=== PATIENT | male | born 1965 | race Caucasian/White ===

== ENCOUNTER → 2017-10-14 | Day surgery (SDC) | payer BC ==
[~2017-10-14] MED LIST: FENTANYL CITRATE/PF 100MCG/2 ML INJ ONE; LIDOCAINE HCL 2% LOCAL INJ 5 ML SDV VIAL INJ ONE; METOCLOPRAMIDE HCL 10 MG/2ML VIAL ONE; MIDAZOLAM HCL 2 MG/2 ML VIAL ONE; PANTOPRAZOLE 40 MG 10ML VIAL ONE; PROPOFOL IV EMULSION 10 MG/ML 20 ML VIAL ONE
[2017-10-14 16:38] LABS: WBC,FECAL (FECAL LACTOFERRIN) NEGATIVE (NEGATIVE)
--- NOTE | 2017-10-14 16:41 | Operative Report ---
DATE OF PROCEDURE: October 14, 2017 PROCEDURE PERFORMED: 1. Esophagogastroduodenoscopy with esophageal dilatation and biopsies. 2. Colonoscopy with polypectomy and biopsies. INDICATIONS FOR ESOPHAGOGASTRODUODENOSCOPY: Dysphagia/odynophagia, heartburn. INDICATIONS FOR COLONOSCOPY: Rectal bleeding, change in bowel habits, intermittent diarrhea. MEDICATION: Patient was done under MAC. Please see anesthesiologist's note. PROCEDURE: With patient in the left lateral decubitus position, the flexible fiberoptic Olympus gastroscope was introduced into the esophagus under direct visualization without any difficulty. There were some concentric rings noted in the esophagus compatible with eosinophilic esophagitis, biopsies were obtained, and there was a mild stricture noted at the GE junction and that was dilated to a size 52-[place] Daniels. The scope was then advanced with ease into the stomach. Mucosa overlying the antrum and the body revealed some diffuse erythema and low-grade to moderate edema, and biopsies were obtained and sent to stain for H. pylori. Pylorus appeared to be of normal contour and shape, was intubated with ease, and the scope was advanced all the way to the 2nd portion of the duodenum. The scope was then withdrawn slowly, and mucosa overlying the proximal 2nd portion grossly appeared to be within normal limits. Biopsies were obtained to rule out sprue considering patient's history of diarrhea. The mucosa overlying the duodenal bulb appeared to be within normal limits. The scope was then withdrawn back into the stomach and retroflexed, and the mucosa overlying the fundus and the cardia appeared to be within normal limits. The scope was then straightened out. It was subsequently withdrawn. Patient tolerated the procedure well. IMPRESSION: 1. Rule out eosinophilic esophagitis. 2. Esophageal stricture at gastroesophageal junction dilated to size 52-[place] Daniels. 3. Gastritis biopsied. Biopsies sent to stain for H. pylori. 4. Rule out sprue. PLAN: Follow up histology. Initiate Protonix 40 mg 1 p.o. q.a.m. a.c. Patient was then turned around and after adequate lubrication of the anal canal, a flexible fiberoptic Olympus colonoscope was inserted into the rectum with ease and advanced all the way to the cecum. Mucosa overlying the cecum grossly appeared to be within normal limits. The ileocecal valve was intubated, and the scope was advanced into the terminal ileum. Biopsies were obtained. The scope was then withdrawn back into the colon. There were some retained stools in the colon, and the prep overall was suboptimal. Whatever was visualized of the mucosa overlying the ascending and the transverse appeared to be within normal limits. There were some mild patchy inflammatory changes noted in the left colon. Multiple random biopsies were obtained. One approximately 1 cm polyp was snared from the sigmoid colon, and 3 minute polyps were hot biopsied from the sigmoid colon. There were also mild diffuse inflammatory changes noted in the rectum, and biopsies were obtained. The scope was then retroflexed into the distal rectum and small internal hemorrhoids were noted, none of which was actively bleeding. The scope was then straightened out. It was subsequently withdrawn. Patient tolerated procedure well. IMPRESSION: 1. Suboptimal prep. 2. Mild patchy colitis left colon. 3. Sigmoid colon polyps times 4 up to 1 cm in size, 1 snared and 3 hot biopsied. 4. Proctitis biopsied. 5. Internal hemorrhoids, none actively bleeding. PLAN: Follow up histology. Follow up stool studies. Initiate Bentyl 10 mg 1 p.o. t.i.d. and initiate VSL#3 DS 1 p.o. daily. Patient will need a colonoscopy in 3 years. Job#: [id number] EV
[2017-10-15 11:53] LABS: C DIFFICILE TOXIN A&B AMP PROB NEGATIVE (NEGATIVE)
== END | disposition home or self-care (01) ==
LOC: OR 12:52
PROVIDERS: ATTEND Internal Medicine Gastroenterology
DX: K22.2 Esophageal obstruction (principal); D12.5 Benign neoplasm of sigmoid colon; K29.70 Gastritis, unspecified, without bleeding; K52.9 Noninfective gastroenteritis and colitis, unspecified; K21.0 Gastro-esophageal reflux disease with esophagitis; K62.89 Other specified diseases of anus and rectum; K59.00 Constipation, unspecified; K64.8 Other hemorrhoids; F41.9 Anxiety disorder, unspecified; Z01.810 Encounter for preprocedural cardiovascular examination; Z68.37 Body mass index [BMI] 37.0-37.9, adult
CPT/HCPCS: 43239; 43450; 45380; 45384; 45385; 83630; 83993; 87045; 87177; 87328; 87493; 93005; J2001; J2250; J2765

== ENCOUNTER 2018-02-08 15:39 | Emergency (ER) | payer BC ==
[~2018-02-08] VITALS: Ht 180.3 cm; Wt 120.2 kg
[2018-02-08] MEDS ORDERED: METRONIDAZOLE 500MG/NS 100ML 100 ML IV STA (16:05)
[2018-02-08] MEDS ORDERED: SODIUM CHLORIDE 0.9% 1000ML 2,000 ML IV STA (16:05)
[2018-02-08] MEDS ORDERED: ONDANSETRON HCL INJ 2 MG/ML VIAL IV STA (16:05)
[2018-02-08] MEDS ORDERED: PIPER-TAZ 3.375 GM 50 ML IV STA (16:05)
[2018-02-08] MEDS ORDERED: MORPHINE SULFATE 5 MG/ML VIAL IV ONE (16:15)
[2018-02-08] MEDS ORDERED: ACETAMINOPHEN 325 MG TAB PO ONE (16:15)
[2018-02-08] MEDS ORDERED: MORPHINE SULFATE 2 MG/ML SYR ONE (16:24)
[2018-02-08 16:45] LABS: BASOPHILS % 0.3 % (0.0-1.0); EOSINOPHILS % 0.3 % (0.0-6.0); HEMATOCRIT 49.4 % (38.2-49.6); HEMOGLOBIN 17.1 g/dL (14.0-18.0); LYMPHOCYTES # (AUTO) 0.8 (1.0-3.2); LYMPHOCYTES % 7.9 % (18.0-39.1); MEAN CORPUSCULAR HEMOGLOBIN 30.9 pg (28-32); MEAN CORPUSCULAR HGB CONC 34.6 g/dL (31-35); MEAN CORPUSCULAR VOLUME 89.2 fL (81-99); MONOCYTES # (AUTO) 0.9 (0.2-0.8); MONOCYTES % 9.1 % (4.4-11.3); NEUTROPHILS # (AUTO) 7.8 (2.1-6.9); PLATELET COUNT 190 x10e3/uL (140-360); RED BLOOD COUNT 5.54 x10e6/uL (4.3-5.7); RED CELL DISTRIBUTION WIDTH 12.7 % (11.7-14.4)
[2018-02-08 16:57] LABS: BILIRUBIN,URINE NEGATIVE (NEGATIVE); CLARITY,URINE HAZY (CLEAR); COLOR,URINE YELLOW (YELLOW); KETONES,URINE NEGATIVE (NEGATIVE); LEUKOCYTE ESTERASE ,URINE NEGATIVE (NEGATIVE); NITRITE,URINE NEGATIVE (NEGATIVE); PROTEIN,URINE DIPSTICK NEGATIVE (NEGATIVE); URINE UROBILINOGEN 0.2 mg/dL (0.2 - 1); WBC,URINE (MAN) 0-5 /HPF (0-5)
[2018-02-08 16:58] LABS: BACTERIA,URINE RARE /HPF; EPITHELIAL CELLS,URINE RARE /LPF; MUCUS,URINE MODERATE (RARE)
[2018-02-08 17:12] LABS: ALANINE AMINOTRANSFERASE 76 IU/L (0-55); ALBUMIN 4.4 g/dL (3.5-5.0); ALBUMIN/GLOBULIN RATIO 1.2 (0.8-2.0); ALKALINE PHOSPHATASE 60 IU/L (40-150); ANION GAP 9.8 mmol/L (8-16); BLOOD UREA NITROGEN 11 mg/dL (7-26); BUN/CREATININE RATIO 8 (6-25); CALCIUM 10.1 mg/dL (8.4-10.2); CARBON DIOXIDE 27 mmol/L (22-29); CHLORIDE 105 mmol/L (98-107); CREATINE KINASE 74 IU/L (30-200); CREATININE, SERUM 1.36 mg/dL (0.72-1.25); EST GLOMERULAR FILTRATION RATE 55 ML/MIN (60-); GLUCOSE 114 mg/dL (74-118); LIPASE 40 U/L (8-78); POTASSIUM 3.8 mmol/L (3.5-5.1); SODIUM 138 mmol/L (136-145)
[2018-02-08] MEDS ORDERED: PANTOPRAZOLE SO40 MG PO (17:48)
--- NOTE | 2018-02-08 17:52 | Diagnostic Imaging Report ---
EXAM: CT Abdomen and Pelvis WITH contrast INDICATION: Abdominal Pain, history of Ulcerative Colitis COMPARISON: None. TECHNIQUE: Abdomen and pelvis were scanned utilizing a multidetector helical scanner from the lung base to the pubic symphysis after administration of IV contrast. Coronal and sagittal reformations were obtained. Routine protocol was performed. Scan was performed when during portal venous phase. IV CONTRAST: 100 mL of Isovue 370 ORAL CONTRAST: Water COMPLICATIONS: None RADIATION DOSE: Total DLP: 927 mGy*cm Estimated effective dose: (DLP x 0.015 x size factor) mSv CTDIvol has been reviewed. It is below the limits set by the Radiation Protocol Committee (RPC). FINDINGS: LINES and TUBES: None. LOWER THORAX: Unremarkable HEPATOBILIARY: Diffuse mild fatty liver. No evidence of focal lesion. No biliary ductal dilation. GALLBLADDER: Status post cholecystectomy. SPLEEN: No splenomegaly. PANCREAS: No focal masses or ductal dilatation. ADRENALS: No adrenal nodules KIDNEYS/URETERS: Kidneys enhance symmetrically. No evidence of hydronephrosis, solid mass, or stone. GI TRACT: The rectum is decompressed with apparent mild wall thickening and fatty infiltration in the wall. No evidence of other bowel wall thickening or distension. Appendix is normal. PELVIC ORGANS/BLADDER: Unremarkable. LYMPH NODES: No lymphadenopathy. VESSELS: Unremarkable. PERITONEUM / RETROPERITONEUM: No free air or fluid. BONES AND SOFT TISSUES: Unremarkable. CONCLUSION: Mildly thick walled rectum, which may be secondary to underdistention. Fatty infiltration of the wall, suggestive of prior inflammatory chevage. No evidence of acute colitis. Mild hepatic steatosis. Signed by: Dr. Kerry Rios MD on 02/08/2018 5:49 PM
[2018-02-08] MEDS ORDERED: SODIUM CHLORIDE 0.9% 50ML 50 ML ONE (17:56)
[2018-02-08] MEDS ORDERED: IOPAMIDOL 370 MG/ML 200 ML INFUS..BTL INJ ONE (17:56)
== END 2018-02-08 18:57 | disposition home or self-care (01) ==
LOC: ER 15:39
DX: R10.32 Left lower quadrant pain (principal); R10.11 Right upper quadrant pain; R11.0 Nausea; R19.7 Diarrhea, unspecified
CPT/HCPCS: 36415; 74177; 80053; 81001; 82550; 82553; 83690; 84484; 85025; 99284; J2270 ×2; J2405; J2543; J7030; Q9967

== ENCOUNTER 2018-03-06 16:16 | Emergency (ER) | payer BC ==
[~2018-03-06] VITALS: Ht 180.3 cm; Wt 120.2 kg
[~2018-03-06 16:16] MED LIST changes: -FENTANYL CITRATE/PF 100MCG/2 ML INJ ONE; -LIDOCAINE HCL 2% LOCAL INJ 5 ML SDV VIAL INJ ONE; -METOCLOPRAMIDE HCL 10 MG/2ML VIAL ONE; -MIDAZOLAM HCL 2 MG/2 ML VIAL ONE; -PANTOPRAZOLE 40 MG 10ML VIAL ONE; +PANTOPRAZOLE SO40 MG PO; -PROPOFOL IV EMULSION 10 MG/ML 20 ML VIAL ONE
--- OUTSIDE RECORDS SUMMARY | 2018-03-06 16:19 | XMS REPORT ---
Author Author [facility] Address Unknown Phone Unavailable Care Team Providers Care Refrigerator Tester Name Role Phone Chong HE Unavailable Unavailable Problems This patient has no known problems. Allergies, Adverse Reactions, Alerts This patient has no known allergies or adverse reactions. Medications This patient has no known medications. Results Test Description Test Time Test Comments Text Results Atomic Results Result Comments CT ABDOMEN/PELVIS W 2018-02-08 17:41:00 [place] [address] Patient Name: HARLEEN MAHAJAN MR #: [id number] : 1965 Age/Sex: 52/M Req #: [id number] [facility] Physician: Ordered by: BERNIE HE MD Report #: [id number] Location: ER Room/Bed: Procedure: [id number] CT/CT ABDOMEN/PELVIS W Exam Date: 02/08/18 Exam Time: 1642 REPORT STATUS: Signed EXAM: CT Abdomen and Pelvis WITH contrast INDICATION: Abdominal Pain, history of Ulcerative Colitis COMPARISON: None. TECHNIQUE: Abdomen and pelvis were scanned utilizing a multidetector helical scanner from the lung base to the pubic symphysis after administration of IV contrast. Coronal and sagittal reformations were obtained. Routine protocol was performed. Scan was performed when during portal venous phase. IV CONTRAST: 100 mL of Isovue 370 ORAL CONTRAST: Water COMPLICATIONS: None RADIATION DOSE: Total DLP: 927 mGy*cm Estimated effective dose: (DLP x 0.015 x size factor) mSv CTDIvol has been reviewed. It is below the limits set by the Radiation Protocol Committee (RPC). FINDINGS: LINES and TUBES: None. LOWER THORAX: Unremarkable HEPATOBILIARY: Diffuse mild fatty liver. No evidence of focal lesion. No biliary ductal dilation. GALLBLADDER: Status post cholecystectomy. SPLEEN: No splenomegaly. PANCREAS: No focal masses or ductal dilatation. ADRENALS: No adrenal nodules KIDNEYS/URETERS: Kidneys enhance symmetrically. No evidence of hydronephrosis, solid mass, or stone. GI TRACT: The rectum is decompressed with apparent mild wall thickening and fatty infiltration in the wall. No evidence of other bowel wall thickening or distension. Appendix is normal. PELVIC ORGANS/BLADDER: Unremarkable. LYMPH NODES: No lymphadenopathy. VESSELS: Unremarkable. PERITONEUM / RETROPERITONEUM: No free air or fluid. BONES AND SOFT TISSUES: Unremarkable. CONCLUSION: Mildly thick walled rectum, which may be secondary to underdistention. Fatty infiltration of the wall, suggestive of prior inflammatory chevage. No evidence of acute colitis. Mild hepatic steatosis. Signed by: Dr. Nathan Roach MD on 02/08/2018 5:49 PM Dictated By: NATHAN ROACH MD 48 Transcribed By: TIRSO on 02/08/181748 COPY TO: BERNIE HE MD
[2018-03-06 17:31] LABS: BASOPHILS % 0.7 % (0.0-1.0); EOSINOPHILS # (AUTO) 0.1 (0.0-0.4); EOSINOPHILS % 1.8 % (0.0-6.0); HEMATOCRIT 42.9 % (38.2-49.6); HEMOGLOBIN 14.5 g/dL (14.0-18.0); LYMPHOCYTES # (AUTO) 1.4 (1.0-3.2); MEAN CORPUSCULAR HEMOGLOBIN 30.6 pg (28-32); MEAN CORPUSCULAR HGB CONC 33.8 g/dL (31-35); MEAN CORPUSCULAR VOLUME 90.5 fL (81-99); MONOCYTES # (AUTO) 0.7 (0.2-0.8); MONOCYTES % 12.1 % (4.4-11.3); NEUTROPHILS # (AUTO) 3.5 (2.1-6.9); NEUTROPHILS % 61.2 % (38.7-80.0); PLATELET COUNT 159 x10e3/uL (140-360); RED BLOOD COUNT 4.74 x10e6/uL (4.3-5.7); RED CELL DISTRIBUTION WIDTH 12.7 % (11.7-14.4)
[2018-03-06 17:40] LABS: CLARITY,URINE SL CLOUDY (CLEAR); COLOR,URINE YELLOW (YELLOW); KETONES,URINE NEGATIVE (NEGATIVE); LEUKOCYTE ESTERASE ,URINE TRACE (NEGATIVE); NITRITE,URINE NEGATIVE (NEGATIVE); PROTEIN,URINE DIPSTICK NEGATIVE (NEGATIVE)
[2018-03-06 17:41] LABS: BILIRUBIN,URINE NEGATIVE (NEGATIVE); URINE UROBILINOGEN 0.2 mg/dL (0.2 - 1)
[2018-03-06 17:52] LABS: ALANINE AMINOTRANSFERASE 69 IU/L (0-55); ALBUMIN 4.1 g/dL (3.5-5.0); ALBUMIN/GLOBULIN RATIO 1.3 (0.8-2.0); ALKALINE PHOSPHATASE 67 IU/L (40-150); BLOOD UREA NITROGEN 9 mg/dL (7-26); BUN/CREATININE RATIO 9 (6-25); CALCIUM 9.6 mg/dL (8.4-10.2); CARBON DIOXIDE 26 mmol/L (22-29); CHLORIDE 106 mmol/L (98-107); CREATININE, SERUM 1.03 mg/dL (0.72-1.25); EST GLOMERULAR FILTRATION RATE > 60 ML/MIN (60-); GLUCOSE 123 mg/dL (74-118); MAGNESIUM 1.9 MG/DL (1.3-2.1); SODIUM 140 mmol/L (136-145)
[2018-03-06 18:12] LABS: THYROID STIMULATING HORMONE 1.658 uIU/mL (0.350-4.940)
--- NOTE | 2018-03-06 18:37 | Diagnostic Imaging Report ---
EXAM: HEAD CT WITHOUT CONTRAST History: 52-year-old male with perioral numbness Comparison studies: None Technique: Axial images were obtained from the skull base to the vertex. Coronal and sagittal reconstructions obtained from the axial data. Dose modulation, iterative reconstruction, and/or weight based adjustment of the mA/kV was utilized to reduce the radiation dose to as low as reasonably achievable. Findings: Scalp/skull: No abnormalities. No fractures, blastic or lytic lesions. Extra-axial spaces: No masses. No fluid collections. Brain sulci: Appropriate for age. Ventricles: Normal in size and configuration. No hydrocephalus. Parenchyma: No abnormal densities. No masses, hemorrhage, acute or chronic cortical vascular insults. Sellar/suprasellar region: No abnormalities Craniocervical junction: Patent foramen magnum. No Chiari one malformation. IMPRESSION: No abnormalities. Preliminary report dictated by Dr. Avelina Bone, Neuroradiology Fellow on 03/06/2018 at 1837 hours. A final report by the attending radiologist will follow. The images and preliminary report were reviewed and signed by Dr. Diana Guido, neuroradiology faculty, on 03/06/2018 at 1944 hours. Signed by: Dr. Diana Giudo M.D. on 03/06/2018 7:44 PM
[2018-03-06 19:54] VITALS: BP 126/76
== END 2018-03-06 20:07 | disposition home or self-care (01) ==
LOC: ER 16:16
DX: R20.2 Paresthesia of skin (principal); I48.91 Unspecified atrial fibrillation; E78.5 Hyperlipidemia, unspecified; K51.90 Ulcerative colitis, unspecified, without complications; G89.29 Other chronic pain
CPT/HCPCS: 36415; 70450; 80053; 81001; 82948; 83735; 84443; 85025; 93005; 99284

== ENCOUNTER 2020-02-27 15:59 | Emergency (ER) | payer BC ==
[~2020-02-27] VITALS: Ht 180.3 cm; Wt 120.2 kg
[2020-02-27] MEDS ORDERED: ONDANSETRON HCL INJ 2MG/ML 2ML 2 MG/ML VIAL IV STA (16:12)
[2020-02-27] MEDS ORDERED: SODIUM CHLORIDE 0.9% 1000ML 1,000 ML IV STA (16:12)
[2020-02-27] MEDS ORDERED: MORPHINE SULFATE INJ 4 MG/ML INJ 1ML IV STA (16:23)
[2020-02-27 16:46] LABS: BASOPHILS # (AUTO) 0.1 (0.0-0.1); BASOPHILS % 0.4 % (0.0-1.0); EOSINOPHILS # (AUTO) 0.1 (0.0-0.4); EOSINOPHILS % 1.3 % (0.0-6.0); HEMATOCRIT 42.4 % (38.2-49.6); HEMOGLOBIN 14.5 g/dL (14.0-18.0); LYMPHOCYTES # (AUTO) 1.7 (1.0-3.2); LYMPHOCYTES % 15.6 % (18.0-39.1); MEAN CORPUSCULAR HEMOGLOBIN 31.4 pg (28-32); MEAN CORPUSCULAR HGB CONC 34.2 g/dL (31-35); MEAN CORPUSCULAR VOLUME 91.8 fL (81-99); MONOCYTES % 8.7 % (4.4-11.3); NEUTROPHILS # (AUTO) 8.2 (2.1-6.9); NEUTROPHILS % 73.6 % (38.7-80.0); PLATELET COUNT 154 x10e3/uL (140-360); RED BLOOD COUNT 4.62 x10e6/uL (4.3-5.7); RED CELL DISTRIBUTION WIDTH 12.4 % (11.7-14.4)
[2020-02-27 16:51] LABS: INR 1.03; PARTIAL THROMBOPLASTIN TIME 30.2 seconds (23.8-35.5)
[2020-02-27 17:02] LABS: ALANINE AMINOTRANSFERASE 101 IU/L (0-55); ALBUMIN 3.8 g/dL (3.5-5.0); ALBUMIN/GLOBULIN RATIO 1.1 (0.8-2.0); ALKALINE PHOSPHATASE 85 IU/L (40-150); AMYLASE 52 U/L (25-125); ANION GAP 13.2 mmol/L (8-16); BLOOD UREA NITROGEN 8 mg/dL (7-26); BUN/CREATININE RATIO 7 (6-25); CALCIUM 9.1 mg/dL (8.4-10.2); CARBON DIOXIDE 25 mmol/L (22-29); CHLORIDE 103 mmol/L (98-107); CREATINE KINASE 103 IU/L (30-200); EST GLOMERULAR FILTRATION RATE > 60 ML/MIN (60-); GLUCOSE 219 mg/dL (74-118); LIPASE 27 U/L (8-78); MAGNESIUM 1.6 MG/DL (1.3-2.1); POTASSIUM 3.2 mmol/L (3.5-5.1); SODIUM 138 mmol/L (136-145)
[2020-02-27] MEDS ORDERED: IOPAMIDOL 370 MG/ML 200 ML INFUS..BTL INJ ONE (17:30)
[2020-02-27] MEDS ORDERED: SODIUM CHLORIDE 0.9% 50ML 50 ML ONE (17:30)
--- NOTE | 2020-02-27 18:03 | Diagnostic Imaging Report ---
EXAM: CT Abdomen and Pelvis WITH contrast INDICATION: Right upper quadrant and right lower quadrant pain in patient with history of colitis. COMPARISON: CT of the abdomen/pelvis on 03/06/2018 TECHNIQUE: Abdomen and pelvis were scanned utilizing a multidetector helical scanner from the lung base to the pubic symphysis after administration of IV contrast. Coronal and sagittal reformations were obtained. Routine protocol was performed. Scan was performed when during portal venous phase. IV CONTRAST: 100 mL of Isovue 370 ORAL CONTRAST: None COMPLICATIONS: None RADIATION DOSE: Total DLP: 948 mGy*cm Estimated effective dose: (DLP x 0.015 x size factor) mSv CTDIvol has been reviewed. It is below the limits set by the Radiation Protocol Committee (RPC). Dose modulation, iterative reconstruction, and/or weight based adjustment of the mA/kV was utilized to reduce the radiation dose to as low as reasonably achievable. FINDINGS: LINES and TUBES: None. LOWER THORAX: Unremarkable HEPATOBILIARY: The liver is diffuse hypodense compared to the spleen, consistent with diffuse hepatic diffuse hepatic steatosis. No focal hepatic lesions. No biliary ductal dilation. GALLBLADDER: There are cholecystectomy clips. SPLEEN: No splenomegaly. PANCREAS: No focal masses or ductal dilatation. ADRENALS: No adrenal nodules KIDNEYS/URETERS: Kidneys enhance symmetrically. No hydronephrosis. No cystic or solid mass lesions. No stones. GI TRACT: No abnormal distention, wall thickening, or evidence of bowel obstruction. Appendix is normal. PELVIC ORGANS/BLADDER: Unremarkable. LYMPH NODES: No lymphadenopathy. VESSELS: Scattered mild arterial vascular calcifications. PERITONEUM / RETROPERITONEUM: No free air or fluid. BONES: There are mild degenerative changes in the spine. SOFT TISSUES: Unremarkable. IMPRESSION: 1. No acute abdominopelvic abnormality identified. 2. Hepatic steatosis. Signed by: Pam Rivera MD on 02/27/2020 6:00 PM
[2020-02-27 18:07] LABS: CREATINE KINASE MB < 1.00 ng/mL (0-4.3)
--- NOTE | 2020-02-27 18:40 | Emergency Department Note ---
History of Present Illnes History of Present Illness Chief Complaint: Abdominal Complaints History of Present Illness This is a 54 year old male PATIENT IN FROM HOME WITH COMPLAINTS OF RUQ ABDOMINAL PAIN X 2 WEEKS; PATIENT ALSO REPORTS FOR THE LAST 5 DAYS HE HAS HAD THICK, TARRY STOOLS. RATES PAIN 5/10, ALSO COMPLAINS OF NAUSEA AND REPORTS FEVER, CHILLS, AND BURNING WITH URINATION LAST NIGHT. PATIENT ALERT AND ORIENT ED, RESP EVEN AND NONLABORED, APPEARS IN NO DISTRESS, AMBULATORY WITHOUT ASSISTANCE. Historian: Patient Arrival Mode: Car Licensed Club Manager Required: No Onset (how long ago): week(s) (2) Location: RUQ ABDOMEN Quality: PAIN Radiation: Reports non-radiation Severity: moderate Onset quality: gradual Timing of current episode: intermittent Progression: waxing and waning Chronicity: recurrent Context: Denies recent illness Relieving factors: none Exacerbating factors: none Associated symptoms: Reports denies other symptoms, Reports fever/chills, Reports other (DYSURIA) Past Medical/Family History Physician Review I have reviewed the patient's past medical and family history. Any updates have been documented here. Past Medical History Recent Fever: No Clinical Suspicion of Infectio: No New/Unexplained Change in Ment: No Past Medical History: A-Fib Other Medical History: ULCERATIVE COLITIS HERNIATED DISCS Past Surgical History: Cholecysctectomy Other Surgery: LOOP RECORDER NECK SX RIGHT SHOULDER SX NOSE SX LOOP RECORDER REMOVED X2 YEARS AGO Social History Smoking Cessation: Never Smoker Counseling Performed: No Alcohol Use: Occasional Any Illegal Drug Use: No TB Exposure/Symptoms: No Physically hurt or threatened: No Family History Family history of heart diseas: No Other Last Tetanus: UNKNOWN Any Pre-Existing Lines (PICC,: No Review of Systems Review of Systems Constitutional: Reports as per HPI, Reports chills, Reports fever EENTM: Reports no symptoms Cardiovascular: Reports no symptoms Respiratory: Reports no symptoms Gastrointestinal: Reports as per HPI, Reports abdominal pain Genitourinary: Reports as per HPI, Reports dysuria Musculoskeletal: Reports no symptoms Integumentary: Reports no symptoms Neurological: Reports no symptoms Psychological: Reports no symptoms Endocrine: Reports no symptoms Hematological/Lymphatic: Reports no symptoms Physical Exam Related Data Allergies: Coded Allergies: testosterone (Verified Allergy, Mild, 02/27/20) Triage Vital Signs Vital Signs Date Time Temp Pulse Resp B/P (MAP) Pulse Ox O2 Delivery O2 Flow Rate FiO2 02/27/20 16:07 98.5 83 20 130/59 100 Room Air Vital signs reviewed: Yes Physical Exam CONSTITUTIONAL Constitutional: Present well-developed, Present well-nourished HENT HENT: Present normocephalic, Present atraumatic, Present oropharynx clear/moist, Present nose normal HENT L/R: Present left ext ear normal, Present right ext ear normal EYES Eyes: Reports PERRL, Reports conjunctivae normal NECK Neck: Present ROM normal PULMONARY Pulmonary: Present effort normal, Present breath sounds normal CARDIOVASCULAR Cardiovascular: Present regular rhythm, Present heart sounds normal, Present capillary refill normal, Present normal rate GASTROINTESTINAL Abdominal: Present soft, Present bowel sounds normal, Present tender (MILD TTP RUQ WITHOUT R/G); Absent guarding, Absent rebound, Absent left CVA tenderness, Absent right CVA tenderness GENITOURINARY Genitourinary: Present exam deferred SKIN Skin: Present warm, Present dry MUSCULOSKELETAL Musculoskeletal: Present ROM normal NEUROLOGICAL Neurological: Present alert, Present oriented x 3, Present no gross motor or sensory deficits PSYCHOLOGICAL Psychological: Present mood/affect normal, Present judgement normal Results Laboratory Result Diagram: 02/27/20 1614 02/27/20 1614 Laboratory Laboratory Tests Test 02/27/20 16:14 White Blood Count 11.12 x10e3/uL (4.8-10.8) Red Blood Count 4.62 x10e6/uL (4.3-5.7) Hemoglobin 14.5 g/dL (14.0-18.0) Hematocrit 42.4 % (38.2-49.6) Mean Corpuscular Volume 91.8 fL (81-99) Mean Corpuscular Hemoglobin 31.4 pg (28-32) Mean Corpuscular Hemoglobin Concent 34.2 g/dL (31-35) Red Cell Distribution Width 12.4 % (11.7-14.4) Platelet Count 154 x10e3/uL (140-360) Neutrophils (%) (Auto) 73.6 % (38.7-80.0) Lymphocytes (%) (Auto) 15.6 % (18.0-39.1) Monocytes (%) (Auto) 8.7 % (4.4-11.3) Eosinophils (%) (Auto) 1.3 % (0.0-6.0) Basophils (%) (Auto) 0.4 % (0.0-1.0) Neutrophils # (Auto) 8.2 (2.1-6.9) Lymphocytes # (Auto) 1.7 (1.0-3.2) Monocytes # (Auto) 1.0 (0.2-0.8) Eosinophils # (Auto) 0.1 (0.0-0.4) Basophils # (Auto) 0.1 (0.0-0.1) Absolute Immature Granulocyte (auto 0.04 x10e3/uL (0-0.1) Prothrombin Time 14.0 seconds (11.9-14.5) Prothromb Time International Ratio 1.03 Activated Partial Thromboplast Time 30.2 seconds (23.8-35.5) Sodium Level 138 mmol/L (136-145) Potassium Level 3.2 mmol/L (3.5-5.1) Chloride Level 103 mmol/L (98-107) Carbon Dioxide Level 25 mmol/L (22-29) Anion Gap 13.2 mmol/L (8-16) Blood Urea Nitrogen 8 mg/dL (7-26) Creatinine 1.20 mg/dL (0.72-1.25) Estimat Glomerular Filtration Rate > 60 ML/MIN (60-) BUN/Creatinine Ratio 7 (6-25) Glucose Level 219 mg/dL (74-118) Calcium Level 9.1 mg/dL (8.4-10.2) Magnesium Level 1.6 MG/DL (1.3-2.1) Total Bilirubin 1.0 mg/dL (0.2-1.2) Aspartate Amino Transf (AST/SGOT) 56 IU/L (5-34) Alanine Aminotransferase (ALT/SGPT) 101 IU/L (0-55) Alkaline Phosphatase 85 IU/L (40-150) Creatine Kinase 103 IU/L (30-200) Creatine Kinase MB < 1.00 ng/mL (0-4.3) Troponin I < 0.05 ng/mL (0.0-0.40) Total Protein 7.2 g/dL (6.5-8.1) Albumin 3.8 g/dL (3.5-5.0) Globulin 3.4 g/dL (2.3-3.5) Albumin/Globulin Ratio 1.1 (0.8-2.0) Amylase Level 52 U/L (25-125) Lipase 27 U/L (8-78) Lab results reviewed: Yes Imaging Imaging results reviewed: Yes Impressions EXAM: CT Abdomen and Pelvis WITH contrast INDICATION: Right upper quadrant and right lower quadrant pain in patient with history of colitis. COMPARISON: CT of the abdomen/pelvis on 03/06/2018 TECHNIQUE: Abdomen and pelvis were scanned utilizing a multidetector helical scanner from the lung base to the pubic symphysis after administration of IV contrast. Coronal and sagittal reformations were obtained. Routine protocol was performed. Scan was performed when during portal venous phase. IV CONTRAST: 100 mL of Isovue 370 ORAL CONTRAST: None COMPLICATIONS: None RADIATION DOSE: Total DLP: 948 mGy*cm Estimated effective dose: (DLP x 0.015 x size factor) mSv CTDIvol has been reviewed. It is below the limits set by the Radiation Protocol Committee (RPC). Dose modulation, iterative reconstruction, and/or weight based adjustment of the mA/kV was utilized to reduce the radiation dose to as low as reasonably achievable. FINDINGS: LINES and TUBES: None. LOWER THORAX: Unremarkable HEPATOBILIARY: The liver is diffuse hypodense compared to the spleen, consistent with diffuse hepatic diffuse hepatic steatosis. No focal hepatic lesions. No biliary ductal dilation. GALLBLADDER: There are cholecystectomy clips. SPLEEN: No splenomegaly. PANCREAS: No focal masses or ductal dilatation. ADRENALS: No adrenal nodules KIDNEYS/URETERS: Kidneys enhance symmetrically. No hydronephrosis. No cystic or solid mass lesions. No stones. GI TRACT: No abnormal distention, wall thickening, or evidence of bowel obstruction. Appendix is normal. PELVIC ORGANS/BLADDER: Unremarkable. LYMPH NODES: No lymphadenopathy. VESSELS: Scattered mild arterial vascular calcifications. PERITONEUM / RETROPERITONEUM: No free air or fluid. BONES: There are mild degenerative changes in the spine. SOFT TISSUES: Unremarkable. IMPRESSION: 1. No acute abdominopelvic abnormality identified. 2. Hepatic steatosis. Signed by: Pam Rivera MD on 02/27/2020 6:00 PM Procedures 12 Lead ECG Interpretation ECG Interpretation : ECG: ECG 1 Licensed Club Manager: Interpreted by ED physician Date: Feb 27, 2020 Time: 18:43 Rhythm: sinus rhythm Rate: normal BPM: 63 QRS axis: normal ST segments normal: Yes T wave inversion: III T waves flattening: aVF, V3 Clinical Impression: normal ECG Assessment & Plan Medical Decision Making MDM ABD PAIN RUQ, H/O UC - CBC, CHEM, LIPASE, CARDIACS, ECG, BLOOD CX'S, UA/CX, CT ABD/PELVIS - EVAL FOR COLITIS, UTI, APPENDICITIS, SBO, RENAL INSUFF, ELECTROLYTE ABNL Reassessment Reassessment PT IMPROVED, WILL DC HOME WITH EVELYN, F/U WITH PCP AND DR Dianne SANCHEZ. REPORT TO ONCOMING ER MD TO CHECK UA WHICH IS STILL PENDING Assessment & Plan Final Impression: (1) Abdominal pain (2) Hepatic steatosis (3) Hypokalemia Depart Disposition: HOME, SELF-CARE Last Vital Signs Date Time Temp Pulse Resp B/P (MAP) Pulse Ox O2 Delivery O2 Flow Rate FiO2 02/27/20 16:07 98.5 83 20 130/59 100 Room Air Home Meds Reported Medications Pantoprazole Sodium* (PROTONIX) 40 Mg Tablet., 40 MG PO DAILY, #30 02/08/18 Medications in the ED Morphine Sulfate 4 mg ONCE STAT IV Last administered on 02/27/20at 16:34; Admin Dose 4 MG; Start 02/27/20 at 16:23; Stop 02/27/20 at 16:24; Status DC Ondansetron HCl 4 mg ONCE STAT IV Last administered on 02/27/20at 16:34; Admin Dose 4 MG; Start 02/27/20 at 16:12; Stop 02/27/20 at 16:24; Status DC Sodium Chloride 1,000 ml @ 0 mls/hr Q0M STAT IV Last administered on 02/27/20at 16:34; Admin Dose 1,000 MLS/HR; Start 02/27/20 at 16:12; Stop 02/27/20 at 16:18; Status DC Sodium Chloride 50 ml @ ud STK-MED ONCE .ROUTE ; Start 02/27/20 at 17:30; Stop 02/27/20 at 17:23; Status DC Iopamidol 74,000 mg STK-MED ONCE INJ ; Start 02/27/20 at 17:30; Stop 02/27/20 at 17:23; Status DC KADEN FELIZ MD Feb 27, 2020 18:40
[2020-02-27] MEDS ORDERED: POTASSIUM CHLORIDE 20 MEQ TAB CR PO STA (18:41)
[2020-02-27] MEDS ORDERED: DICYCLOMINE HCL 20 MG/2 ML VIAL IM ONE ×2 (18:56→19:00)
[2020-02-27 19:04] LABS: BILIRUBIN,URINE NEGATIVE (NEGATIVE); CLARITY,URINE CLEAR (CLEAR); COLOR,URINE YELLOW (YELLOW); KETONES,URINE NEGATIVE (NEGATIVE); LEUKOCYTE ESTERASE ,URINE TRACE (NEGATIVE); NITRITE,URINE NEGATIVE (NEGATIVE); PROTEIN,URINE DIPSTICK NEGATIVE (NEGATIVE); URINE UROBILINOGEN 2 mg/dL (0.2 - 1)
[2020-02-27 19:23] LABS: BACTERIA,URINE FEW /HPF; EPITHELIAL CELLS,URINE FEW /LPF; WBC,URINE (MAN) 0-5 /HPF (0-5)
[2020-02-27 19:28] VITALS: BP 130/75
== END 2020-02-27 19:36 | disposition home or self-care (01) ==
LOC: ER 16:20
DX: R10.11 Right upper quadrant pain (principal); K76.0 Fatty (change of) liver, not elsewhere classified; E87.6 Hypokalemia; I48.91 Unspecified atrial fibrillation
CPT/HCPCS: 36415; 74177; 80053; 81001; 82150; 82550; 82553; 83690; 83735; 84484; 85025; 85610; 85730; 87040; 87086; 93005; 99283; J0500; J2270; J2405; J7030; Q9967

== ENCOUNTER 2021-06-27 04:48 | Emergency (ER) | payer BC ==
[~2021-06-27] VITALS: Ht 177.8 cm; Wt 99.8 kg
[2021-06-27] MEDS ORDERED: ONDANSETRON HCL INJ 2MG/ML 2ML 2 MG/ML VIAL IV STA (05:24)
[2021-06-27] MEDS ORDERED: Morphine 4mg Syringe 4 MG/ML INJ IV PRN (05:30)
[2021-06-27] MEDS ORDERED: SODIUM CHLORIDE 0.9% 1000ML 1,000 ML IV ONE (05:30)
[2021-06-27 05:41] LABS: BASOPHILS % 0.2 % (0.0-1.0); EOSINOPHILS % 0.1 % (0.0-6.0); HEMATOCRIT 48.9 % (38.2-49.6); HEMOGLOBIN 16.8 g/dL (14.0-18.0); LYMPHOCYTES # (AUTO) 0.3 (1.0-3.2); LYMPHOCYTES % 3.7 % (18.0-39.1); MEAN CORPUSCULAR HEMOGLOBIN 30.5 pg (28-32); MEAN CORPUSCULAR HGB CONC 34.4 g/dL (31-35); MEAN CORPUSCULAR VOLUME 88.9 fL (81-99); MONOCYTES # (AUTO) 0.5 (0.2-0.8); NEUTROPHILS # (AUTO) 7.4 (2.1-6.9); NEUTROPHILS % 89.5 % (38.7-80.0); PLATELET COUNT 182 x10e3/uL (140-360); RED CELL DISTRIBUTION WIDTH 12.4 % (11.7-14.4)
[2021-06-27 06:08] LABS: ALBUMIN 3.9 g/dL (3.5-5.0); ALBUMIN/GLOBULIN RATIO 1.1 (0.8-2.0); ANION GAP 17.6 mmol/L (8-16); CALCIUM 8.9 mg/dL (8.4-10.2); CREATININE, SERUM 1.23 mg/dL (0.72-1.25); POTASSIUM 3.6 mmol/L (3.5-5.1)
[2021-06-27] MEDS ORDERED: SODIUM CHLORIDE 0.9% 50ML 50 ML ONE (06:24)
[2021-06-27] MEDS ORDERED: IOPAMIDOL 370 MG/ML 200 ML INFUS..BTL INJ ONE (06:25)
[2021-06-27] MEDS ORDERED: ONDANSETRON ODT4 MG PO (08:12)
== END 2021-06-27 08:39 | disposition home or self-care (01) ==
LOC: ER 05:24
DX: R10.30 Lower abdominal pain, unspecified (principal); R11.2 Nausea with vomiting, unspecified; E11.65 Type 2 diabetes mellitus with hyperglycemia; I48.91 Unspecified atrial fibrillation; Z20.822 Contact with and (suspected) exposure to COVID-19; Z87.19 Personal history of other diseases of the digestive system
CPT/HCPCS: 36415; 74177; 80053; 83690; 85025; 93005; 99284; J2270; J2405; J7030; Q9967; U0002

== ENCOUNTER → 2023-11-22 | Day surgery (SDC) | payer BC ==
[2023-11-21 09:08] LABS: RED BLOOD COUNT 4.91 x10e6/uL (4.3-5.7); WHITE BLOOD COUNT 5.04 x10e3/uL (4.8-10.8)
[2023-11-21 09:09] LABS: BASOPHILS % 1.2 % (0.0-1.0); EOSINOPHILS % 5.2 % (0.0-6.0); HEMOGLOBIN 15.4 g/dL (14.0-18.0); LYMPHOCYTES # (AUTO) 1.3 (1.0-3.2); MEAN CORPUSCULAR HEMOGLOBIN 31.4 pg (28-32); MEAN CORPUSCULAR HGB CONC 33.5 g/dL (31-35); MEAN CORPUSCULAR VOLUME 93.7 fL (81-99); MONOCYTES # (AUTO) 0.5 (0.2-0.8); MONOCYTES % 9.7 % (4.4-11.3); NEUTROPHILS # (AUTO) 2.9 (2.1-6.9); NEUTROPHILS % 57.5 % (38.7-80.0); PLATELET COUNT 182 x10e3/uL (140-360); RED CELL DISTRIBUTION WIDTH 12.2 % (11.7-14.4)
[2023-11-21 09:10] LABS: BASOPHILS # (AUTO) 0.1 (0.0-0.1); EOSINOPHILS # (AUTO) 0.3 (0.0-0.4)
[~2023-11-22] MED LIST changes: +ASPIRIN81 MG PO; +CARVEDILOL12.5 MG PO; +CYCLOBENZAPRINE10 MG PO; +CYMBALTA30 MG PO; +FARXIGA10 MG PO; +FISH OIL 1,0001 EACH PO; +LACTATED RINGER'S 1,000 ML ONE; +LIDOCAINE HCL 2% LOCAL INJ 5 ML SDV VIAL INJ ONE; +MIDAZOLAM HCL 2 MG/2 ML VIAL ONE; +NAPROXEN250 MG PO; +ONDANSETRON ODT4 MG PO; +PROPOFOL IV EMULSION 10 MG/ML 20 ML VIAL ONE
[2023-11-22 13:58] VITALS: TEMP 97.9
[2023-11-22 14:15] VITALS: BP 119/79; PULSE 75; RESP 16; O2SAT 92
== END | disposition home or self-care (01) ==
LOC: OR 12:03
PROVIDERS: ATTEND Internal Medicine Gastroenterology
DX: K21.00 Gastro-esophageal reflux disease with esophagitis, without bleeding (principal); K29.50 Unspecified chronic gastritis without bleeding; K44.9 Diaphragmatic hernia without obstruction or gangrene; K59.00 Constipation, unspecified; K62.5 Hemorrhage of anus and rectum; K62.89 Other specified diseases of anus and rectum; K64.8 Other hemorrhoids; G47.33 Obstructive sleep apnea (adult) (pediatric); E11.9 Type 2 diabetes mellitus without complications; I10 Essential (primary) hypertension; I49.9 Cardiac arrhythmia, unspecified; R01.1 Cardiac murmur, unspecified; Z88.8 Allergy status to other drugs, medicaments and biological substances; Z01.810 Encounter for preprocedural cardiovascular examination; Z01.812 Encounter for preprocedural laboratory examination; Z79.82 Long term (current) use of aspirin; Z79.1 Long term (current) use of non-steroidal anti-inflammatories (NSAID); Z79.899 Other long term (current) drug therapy; Z68.37 Body mass index [BMI] 37.0-37.9, adult; Z87.898 Personal history of other specified conditions; Z87.19 Personal history of other diseases of the digestive system
CPT/HCPCS: 36415; 43239; 45380; 85025; 93005; J2001; J2250; J2704; J7121; 45378